=== PATIENT | male | born 2000 | race African-American/Black ===

== ENCOUNTER 2020-05-04 15:05 | Observation (INO) | payer BC, OTHER ==
[2020-05-04] MEDS ORDERED: IPRATROPIUM-ALBUTEROL 3 ML NEB INHALATION STA (15:19)
[2020-05-04] MEDS ORDERED: methylPREDNISolone SOD SUCCI 125 MG/2 ML VIAL IV STA (15:19)
--- NOTE | 2020-05-04 15:19 | ED ---
SOB HPI - General Chief Complaint: Shortness of Breath Stated Complaint: DANTE Time Seen by Provider: 05/04/20 15:10 Source: patient Mode of arrival: ambulatory - History of Present Illness Initial Comments: The patient is a 19-year-old male who presents to the hospital from longterm. He has a history of mild intermittent asthma and reports that he has had increased work of breathing since last night. [facility] has been providing him with breathing treatments. He also received an IM injection of steroids this morning. Reports to minimal and transient improvement in his symptoms. Denies previously being on life support. Denies frequent visits to the emergency room and urgent cares for asthma. Patient's never seen a dental assistant. He denies productive cough or chest pain. No hemoptysis. Denies any back or flank pain. No recent fevers or chills. Denies sick contacts. No recent travel. No lower trauma edema. No history of cardiac disease. There are no alleviating, precipitating or modifying factors - Related Data Home Medications Medication Instructions Recorded Confirmed Albuterol Inhaler [Ventolin Hfa 2 puff INHALATION RT-Q4H PRN 05/04/20 05/04/20 Inhaler] Previous Rx's Medication Instructions Recorded Famotidine [Pepcid] 20 mg PO BID #30 tablet 05/05/20 predniSONE 10 mg PO DAILY #30 tab 05/05/20 Allergies Allergy/AdvReac Type Severity Reaction Status Date / Time No Known Allergies Allergy Verified 05/04/20 19:06 Review of Systems ROS Statement: Those systems with pertinent positive or pertinent negative responses have been documented in the HPI. ROS Other: All systems not noted in ROS Statement are negative. Past Medical History Past Medical History: Asthma History of Any Multi-Drug Resistant Organisms: None Reported Past Surgical History: No Surgical Hx Reported Past Psychological History: No Psychological Hx Reported Smoking Status: Never smoker Past Alcohol Use History: None Reported Past Drug Use History: Marijuana - Past Family History Mother Additional Family Medical History / Comment(s): migraines General Exam General appearance: alert, in distress Head exam: Present: atraumatic, normocephalic, normal inspection Eye exam: Present: normal appearance, PERRL, EOMI. Absent: scleral icterus, conjunctival injection, periorbital swelling ENT exam: Present: normal exam, mucous membranes moist Neck exam: Present: normal inspection. Absent: tenderness, meningismus, lymphadenopathy Respiratory exam: Present: normal lung sounds bilaterally, stridor, accessory muscle use, other (tachypnia. Patient has forced upper airway sounds) Cardiovascular Exam: Present: normal rhythm, tachycardia GI/Abdominal exam: Present: soft, normal bowel sounds. Absent: distended, tenderness, guarding, rebound, rigid Extremities exam: Present: normal inspection, full ROM, normal capillary refill. Absent: tenderness, pedal edema, joint swelling, calf tenderness Neurological exam: Present: alert, oriented X3, CN II-XII intact Psychiatric exam: Present: anxious Skin exam: Present: warm, dry Course Vital Signs 05/04/20 05/04/20 05/04/20 15:08 15:32 15:44 Temperature 97.9 F Pulse Rate 125 H 120 H 118 H Respiratory 28 H Rate Blood Pressure 142/92 O2 Sat by Pulse 100 Oximetry 05/04/20 05/04/20 15:56 17:58 Temperature 98.0 F Pulse Rate 117 H 98 Respiratory 20 Rate Blood Pressure 128/81 O2 Sat by Pulse 98 Oximetry Medical Decision Making - Medical Decision Making Upon return of the patient's placed into room 4. A thorough history and physic al exam is performed. Patient is not diffusely wheezy however does have a prominent sound with expiration as if he is forcing air through his upper airway. No stridor. Patient is tachypneic and tachycardic. Peripheral IV had been established by EMS. 12-lead EKG was performed which demonstrates diffuse T-wave inversions and ST depression. The patient was given a DuoNeb breathing treatment followed by an albuterol treatment. He is also provided with a gram of magnesium and 125 mg of Solu-Medrol IV. Laboratories were conducted. White blood cell count 12.7. Lactic acid 8.5. Chest x-ray demonstrates slight prominence with increased central markings may reflect small airway disease. Michi cavanaugh is reevaluated and breathing is much improved. He was given a liter bolus normal saline for his lactic acidosis. Recommend hospital admission for which the patient agree. Case is discussed with Dr. Quick. Dr. Aguiar will be placed on consult. Patient will receive breathing treatments and steroids on the floor. Patient is then transferred to the floor in stable condition - Lab Data Result diagrams: 05/05/20 03:27 05/05/20 03:27 Lab Results 05/04/20 05/04/20 05/04/20 Range/Units 00:50 15:23 15:23 WBC 12.7 H (3.8-10.6) k/uL RBC 5.95 H (4.30-5.90) m/uL Hgb 16.9 (13.0-17.5) gm/dL Hct 50.9 (39.0-53.0) % MCV 85.5 (80.0-100.0) fL MCH 28.4 (25.0-35.0) pg MCHC 33.2 (31.0-37.0) g/dL RDW 13.5 (11.5-15.5) % Plt Count 291 (150-450) k/uL Neutrophils % 93 % Lymphocytes % 4 % Monocytes % 1 % Eosinophils % 2 % Basophils % 0 % Neutrophils # 11.8 H (1.3-7.7) k/uL Lymphocytes # 0.5 L (1.0-4.8) k/uL Monocytes # 0.1 (0-1.0) k/uL Eosinophils # 0.2 (0-0.7) k/uL Basophils # 0.0 (0-0.2) k/uL PT 11.5 (9.0-12.0) sec INR 1.1 (<1.2) APTT 22.5 (22.0-30.0) sec D-Dimer (<0.60) mg/L FEU Sodium (137-145) mmol/L Potassium (3.5-5.1) mmol/L Chloride (98-107) mmol/L Carbon Dioxide (22-30) mmol/L Anion Gap mmol/L BUN (9-20) mg/dL Creatinine (0.66-1.25) mg/dL Est GFR (CKD-EPI)AfAm (>60 ml/min/1.73 sqM) Est GFR (CKD-EPI)NonAf (>60 ml/min/1.73 sqM) Glucose (74-99) mg/dL Lactic Ac Sepsis Rflx Plasma Lactic Acid Osmar (0.7-2.0) mmol/L Calcium (8.4-10.2) mg/dL Total Bilirubin (0.2-1.3) mg/dL AST (17-59) U/L ALT (4-49) U/L Alkaline Phosphatase (38-126) U/L Troponin I (0.000-0.034) ng/mL Total Protein (6.3-8.2) g/dL Albumin (3.5-5.0) g/dL Urine Color Yellow Urine Appearance Clear (Clear) Urine pH 6.5 (5.0-8.0) Ur Specific Cook 1.018 (1.001-1.035) Urine Protein Negative (Negative) Urine Glucose (UA) Negative (Negative) Urine Ketones Negative (Negative) Urine Blood Negative (Negative) Urine Nitrite Negative (Negative) Urine Bilirubin Negative (Negative) Urine Urobilinogen 4.0 (<2.0) mg/dL Ur Leukocyte Esterase Negative (Negative) 05/04/20 05/04/20 05/04/20 Range/Units 15:23 15:23 15:23 WBC (3.8-10.6) k/uL RBC (4.30-5.90) m/uL Hgb (13.0-17.5) gm/dL Hct (39.0-53.0) % MCV (80.0-100.0) fL MCH (25.0-35.0) pg MCHC (31.0-37.0) g/dL RDW (11.5-15.5) % Plt Count (150-450) k/uL Neutrophils % % Lymphocytes % % Monocytes % % Eosinophils % % Basophils % % Neutrophils # (1.3-7.7) k/uL Lymphocytes # (1.0-4.8) k/uL Monocytes # (0-1.0) k/uL Eosinophils # (0-0.7) k/uL Basophils # (0-0.2) k/uL PT (9.0-12.0) sec INR (<1.2) APTT (22.0-30.0) sec D-Dimer (<0.60) mg/L FEU Sodium 139 (137-145) mmol/L Potassium 3.3 L (3.5-5.1) mmol/L Chloride 106 (98-107) mmol/L Carbon Dioxide 13 L (22-30) mmol/L Anion Gap 20 mmol/L BUN 12 (9-20) mg/dL Creatinine 0.88 (0.66-1.25) mg/dL Est GFR (CKD-EPI)AfAm >90 (>60 ml/min/1.73 sqM) Est GFR (CKD-EPI)NonAf >90 (>60 ml/min/1.73 sqM) Glucose 125 H (74-99) mg/dL Lactic Ac Sepsis Rflx Plasma Lactic Acid Osmar 8.5 H* (0.7-2.0) mmol/L Calcium 10.8 H (8.4-10.2) mg/dL Total Bilirubin 1.7 H (0.2-1.3) mg/dL AST 35 (17-59) U/L ALT 29 (4-49) U/L Alkaline Phosphatase 94 (38-126) U/L Troponin I <0.012 (0.000-0.034) ng/mL Total Protein 8.3 H (6.3-8.2) g/dL Albumin 5.0 (3.5-5.0) g/dL Urine Color Urine Appearance (Clear) Urine pH (5.0-8.0) Ur Specific Cook (1.001-1.035) Urine Protein (Negative) Urine Glucose (UA) (Negative) Urine Ketones (Negative) Urine Blood (Negative) Urine Nitrite (Negative) Urine Bilirubin (Negative) Urine Urobilinogen (<2.0) mg/dL Ur Leukocyte Esterase (Negative) 05/04/20 05/04/20 Range/Units 15:23 15:50 WBC (3.8-10.6) k/uL RBC (4.30-5.90) m/uL Hgb (13.0-17.5) gm/dL Hct (39.0-53.0) % MCV (80.0-100.0) fL MCH (25.0-35.0) pg MCHC (31.0-37.0) g/dL RDW (11.5-15.5) % Plt Count (150-450) k/uL Neutrophils % % Lymphocytes % % Monocytes % % Eosinophils % % Basophils % % Neutrophils # (1.3-7.7) k/uL Lymphocytes # (1.0-4.8) k/uL Monocytes # (0-1.0) k/uL Eosinophils # (0-0.7) k/uL Basophils # (0-0.2) k/uL PT (9.0-12.0) sec INR (<1.2) APTT (22.0-30.0) sec D-Dimer <0.17 (<0.60) mg/L FEU Sodium (137-145) mmol/L Potassium (3.5-5.1) mmol/L Chloride (98-107) mmol/L Carbon Dioxide (22-30) mmol/L Anion Gap mmol/L BUN (9-20) mg/dL Creatinine (0.66-1.25) mg/dL Est GFR (CKD-EPI)AfAm (>60 ml/min/1.73 sqM) Est GFR (CKD-EPI)NonAf (>60 ml/min/1.73 sqM) Glucose (74-99) mg/dL Lactic Ac Sepsis Rflx Y Plasma Lactic Acid Osmar (0.7-2.0) mmol/L Calcium (8.4-10.2) mg/dL Total Bilirubin (0.2-1.3) mg/dL AST (17-59) U/L ALT (4-49) U/L Alkaline Phosphatase (38-126) U/L Troponin I (0.000-0.034) ng/mL Total Protein (6.3-8.2) g/dL Albumin (3.5-5.0) g/dL Urine Color Urine Appearance (Clear) Urine pH (5.0-8.0) Ur Specific Cook (1.001-1.035) Urine Protein (Negative) Urine Glucose (UA) (Negative) Urine Ketones (Negative) Urine Blood (Negative) Urine Nitrite (Negative) Urine Bilirubin (Negative) Urine Urobilinogen (<2.0) mg/dL Ur Leukocyte Esterase (Negative) - EKG Data EKG Comments: EKG demonstrates sinus tachycardia ventricular rate of 118. MI interval 128. QRS 84. QTC 459. Inverted T waves in leads V3 through V6 as well as 2, 3 and aVF. Disposition Clinical Impression: Asthma exacerbation, Abnormal EKG Disposition: ADMITTED IP TO THIS HOSP Condition: Stable Is patient prescribed a controlled substance at d/c from ED?: No Decision to Admit Reason: Admit from EC Decision Date: 05/04/20 Decision Time: 17:00
[2020-05-04] MEDS ORDERED: MAGNESIUM SULFATE-D5W PMX 1 GM in DEXTROSE/WATER 1 100ML.BAG IVPB ONE (15:25)
[2020-05-04] MEDS ORDERED: ALBUTEROL NEBULIZED 2.5 MG/3 ML INHALATION STA (15:25)
[2020-05-04 15:33] LABS: Basophils % (A) 0 %; Eosinophils # (A) 0.2 k/uL (0-0.7); Eosinophils % (A) 2 %; HCT 50.9 % (39.0-53.0); HGB 16.9 gm/dL (13.0-17.5); Lymphocytes # (A) 0.5 k/uL (1.0-4.8); Lymphocytes % (A) 4 %; MCH 28.4 pg (25.0-35.0); MCHC 33.2 g/dL (31.0-37.0); MCV 85.5 fL (80.0-100.0); Mean Platelet Volume 8.9; Monocytes # (A) 0.1 k/uL (0-1.0); Monocytes % (A) 1 %; Neutrophils # (A) 11.8 k/uL (1.3-7.7); Neutrophils % (A) 93 %; Platelet Count 291 k/uL (150-450); RBC 5.95 m/uL (4.30-5.90); RDW 13.5 % (11.5-15.5); WBC 12.7 k/uL (3.8-10.6)
[2020-05-04 15:42] LABS: INR 1.1 (<1.2); Partial Thromboplastin Time 22.5 sec (22.0-30.0); Prothrombin Time 11.5 sec (9.0-12.0)
[2020-05-04 15:50] LABS: AST 35 U/L (17-59); African American GFR (CKD) >90 (>60 ml/min/1.73 sqM); Alkaline Phosphatase 94 U/L (38-126); Anion Gap 20 mmol/L; Blood Urea Nitrogen 12 mg/dL (9-20); Calcium 10.8 mg/dL (8.4-10.2); Carbon Dioxide 13 mmol/L (22-30); Chloride 106 mmol/L (98-107); Glucose 125 mg/dL (74-99); Non-African American GFR(CKD) >90 (>60 ml/min/1.73 sqM); Potassium 3.3 mmol/L (3.5-5.1); Sodium 139 mmol/L (137-145); Total Bilirubin 1.7 mg/dL (0.2-1.3); Total Protein 8.3 g/dL (6.3-8.2)
[2020-05-04] MEDS ORDERED: SODIUM CHLORIDE 0.9% 2,000 ML IV ONE (15:50)
[2020-05-04 15:57] LABS: ALT 29 U/L (4-49)
--- NOTE | 2020-05-04 16:23 | XR ---
EXAMINATION TYPE: XR chest 2V DATE OF EXAM: 05/04/2020 COMPARISON: None. HISTORY: History of asthma with difficulty in breathing. TECHNIQUE: Frontal and lateral views of the chest are obtained. FINDINGS: There is no suspicious peripheral focal air space opacity, pleural effusion, or pneumothor ax seen. Satisfactory inspiration with increased central markings. The cardiothymic silhouette size i s within normal limits. Note is made of left-sided arch, cardiac apex, and stomach bubble. The osse ous structures are intact. IMPRESSION: Slightly prominent volumes with increased central markings may reflect product of small a irway disease possibly from acute asthma exacerbation. No suspicious peripheral focal infiltrate.
[2020-05-04] MEDS ORDERED: POTASSIUM CHLORIDE ER 20 MEQ TAB.ER PO STA (16:52)
[2020-05-04] MEDS ORDERED: NALOXONE 0.4 MG/ML 1 ML VIAL IV PRN (17:00)
[2020-05-04] MEDS ORDERED: ONDANSETRON 4 MG/2 ML VIAL IVP PRN (18:52)
--- NOTE | 2020-05-04 18:59 | P.HPIM ---
History of Present Illness 27-year-old male presently incarcerated came in with compensative shortness of breath patient has moderate to severe persistent asthma at couple episodes a month lately has been more frequent. And mostly happens during this season. Patient is not wheezing on exam but he has lactic acidosis because of which patient is tachypneic at this time. Patient was started on steroids after which patient felt much better. Patient is on inhalational treatments. Patient is being admitted for asthma exacerbation along with lactic acidosis and tachypnea secondary to lactic acidosis although there is no evidence of sepsis at this time patient doesn't have any pneumonia on the chest x-ray denied any flulike symptoms doesn't have any fever or does have mild leukocytosis, chest discs raise significant for reactive airway disease. She doesn't have any photophobia headache patient doesn't have any symptoms consistent with the meningitis. Doesn't have any abdominal pain patient although has 1 day history of diarrhea multiple episodes and patient is presently having nausea vomiting with epigastric abdominal discomfort patient had an EKG which showed T-wave inversions in all leads consistent with left 20+ strain. Patient is complaining of mild pressure-like chest pain which she has been going on for few days. Patient just pain nonpleuritic not reproducible. Review of Systems REVIEW OF SYSTEMS: CONSTITUTIONAL: No fever, no malaise, no fatigue. HEENT: No recent visual problems or hearing problems. Denied any sore throat. CARDIOVASCULAR: No chest pain, orthopnea, PND, no palpitations, no syncope. PULMONARY: No shortness of breath, no cough, no hemoptysis. GASTROINTESTINAL: No diarrhea, no nausea, no vomiting, no abdominal pain. NEUROLOGICAL: No headaches, no weakness, no numbness. HEMATOLOGICAL: Denies any bleeding or petechiae. GENITOURINARY: Denies any burning micturition, frequency, or urgency. MUSCULOSKELETAL/RHEUMATOLOGICAL: Denies any joint pain, swelling, or any muscle pain. ENDOCRINE: Denies any polyuria or polydipsia. The rest of the 14-point review of systems is negative. Past Medical History Past Medical History: Asthma History of Any Multi-Drug Resistant Organisms: None Reported Past Surgical History: No Surgical Hx Reported Past Psychological History: No Psychological Hx Reported Smoking Status: Never smoker Past Alcohol Use History: None Reported Past Drug Use History: Marijuana Medications and Allergies Allergies Allergy/AdvReac Type Severity Reaction Status Date / Time No Known Allergies Allergy Verified 05/04/20 15:11 Physical Exam Vitals: Vital Signs Temp Pulse Resp BP Pulse Ox 05/04/20 17:58 98.0 F 98 20 128/81 98 05/04/20 15:56 117 H 05/04/20 15:44 118 H 05/04/20 15:32 120 H 05/04/20 15:08 97.9 F 125 H 28 H 142/92 100 Intake and Output 05/04/20 05/04/20 05/04/20 06:59 14:59 22:59 Other: Weight 63.503 kg PHYSICAL EXAMINATION: GENERAL: The patient is alert and oriented x3, in mild respiratory distress. Well developed, well nourished. HEENT: Pupils are round and equally reacting to light. EOMI. No scleral icterus. No conjunctival pallor. Normocephalic, atraumatic. No pharyngeal erythema. No thyromegaly. CARDIOVASCULAR: S1 and S2 present. No murmurs, rubs, or gallops. PULMONARY: Chest is clear to auscultation, no wheezing or crackles. Patient is to Neck but not wheezing ABDOMEN: Soft, nontender, nondistended, normoactive bowel sounds. No palpable organomegaly. MUSCULOSKELETAL: No joint swelling or deformity. EXTREMITIES: No cyanosis, clubbing, or pedal edema. NEUROLOGICAL: Gross neurological examination did not reveal any focal deficits. SKIN: No rashes. Results CBC & Chem 7: 05/04/20 15:23 05/04/20 15:23 Labs: Abnormal Lab Results - Last 24 Hours (Table) 05/04/20 05/04/20 05/04/20 Range/Units 15:23 15:23 15:23 WBC 12.7 H (3.8-10.6) k/uL RBC 5.95 H (4.30-5.90) m/uL Neutrophils # 11.8 H (1.3-7.7) k/uL Lymphocytes # 0.5 L (1.0-4.8) k/uL Potassium 3.3 L (3.5-5.1) mmol/L Carbon Dioxide 13 L (22-30) mmol/L Glucose 125 H (74-99) mg/dL Plasma Lactic Acid Osmar 8.5 H* (0.7-2.0) mmol/L Calcium 10.8 H (8.4-10.2) mg/dL Total Bilirubin 1.7 H (0.2-1.3) mg/dL Total Protein 8.3 H (6.3-8.2) g/dL 05/04/20 Range/Units 18:20 WBC (3.8-10.6) k/uL RBC (4.30-5.90) m/uL Neutrophils # (1.3-7.7) k/uL Lymphocytes # (1.0-4.8) k/uL Potassium (3.5-5.1) mmol/L Carbon Dioxide (22-30) mmol/L Glucose (74-99) mg/dL Plasma Lactic Acid Osmar 3.2 H* (0.7-2.0) mmol/L Calcium (8.4-10.2) mg/dL Total Bilirubin (0.2-1.3) mg/dL Total Protein (6.3-8.2) g/dL Assessment and Plan Plan: Acute asthma exacerbation patient appears to have moderate to persistent asthma patient will be continued on systemic steroids inhalational treatments. Patient asthma exacerbation already improved next and heparin lactic acidosis probably secondary to dehydration patient will be started on IV fluids and will be c ontinued will repeat lactic acid tomorrow no evidence of sepsis at this time we'll also obtain UA with urine cultures -Epigastric abdominal discomfort pressure like chest pain secondary to gastroesophageal reflux disease patient will be started on Protonix. And Zofran. -T wave inversions in multiple leads secondary to left and less today and will obtain echo cardiac event will also obtain 2 more troponins because of his chest a pressure-like sensation. Patient doesn't have any family history of premature coronary artery disease. DVT prophylaxis: Early ambulation GI prophylaxis Protonix
[2020-05-04] MEDS: IPRATROPIUM-ALBUTEROL 3 ML NEB INHALATION SCH ×2 (19:54→23:19)
[2020-05-04] MEDS: PANTOPRAZOLE 40 MG/10 ML VIAL IVP SCH (21:38)
[2020-05-04] MEDS: SODIUM CHLORIDE 0.9% 1,000 ML IV SCH (21:38)
[2020-05-05] MEDS ORDERED: methylPREDNISolone SOD SUCCI 40 MG/ML 1 ML VIAL IV SCH
[2020-05-05] MEDS: methylPREDNISolone SOD SUCCI 40 MG/ML 1 ML VIAL IV SCH ×2 (00:43→08:43)
[2020-05-05 01:11] LABS: Appearance,Urine Clear (Clear); Bilirubin,Urine Negative (Negative); Blood,Urine Negative (Negative); Color,Urine Yellow; Glucose,Urine (UA) Negative (Negative); Ketones,Urine Negative (Negative); Leukocyte Esterase,Urine Negative (Negative); Nitrite,Urine Negative (Negative); PH, Urine 6.5 (5.0-8.0); Protein,Urine Negative (Negative); Specific Gravity,Urine 1.018 (1.001-1.035)
[2020-05-05] MEDS: SODIUM CHLORIDE 0.9% 1,000 ML IV SCH ×2 (03:44→11:47)
[2020-05-05] MEDS: IPRATROPIUM-ALBUTEROL 3 ML NEB INHALATION SCH ×3 (03:49→10:55)
[2020-05-05 03:53] LABS: African American GFR (CKD) >90 (>60 ml/min/1.73 sqM); Anion Gap 8 mmol/L; Blood Urea Nitrogen 10 mg/dL (9-20); Calcium 9.6 mg/dL (8.4-10.2); Carbon Dioxide 19 mmol/L (22-30); Chloride 109 mmol/L (98-107); Glucose 128 mg/dL (74-99); Non-African American GFR(CKD) >90 (>60 ml/min/1.73 sqM); Potassium 4.4 mmol/L (3.5-5.1); Sodium 136 mmol/L (137-145)
[2020-05-05 04:23] LABS: Basophils % (A) 0 %; Eosinophils % (A) 0 %; HCT 44.2 % (39.0-53.0); HGB 14.8 gm/dL (13.0-17.5); Lymphocytes # (A) 0.9 k/uL (1.0-4.8); Lymphocytes % (A) 7 %; MCH 29.5 pg (25.0-35.0); MCHC 33.6 g/dL (31.0-37.0); MCV 87.7 fL (80.0-100.0); Monocytes # (A) 0.2 k/uL (0-1.0); Monocytes % (A) 2 %; Neutrophils # (A) 11.5 k/uL (1.3-7.7); Neutrophils % (A) 91 %; Platelet Count 248 k/uL (150-450); RBC 5.04 m/uL (4.30-5.90); RDW 13.4 % (11.5-15.5); WBC 12.6 k/uL (3.8-10.6)
[2020-05-05] MEDS: PANTOPRAZOLE 40 MG/10 ML VIAL IVP SCH (08:43)
[2020-05-05 09:19] VITALS: BP 132/68; RESP 18; TEMP 97.8
--- NOTE | 2020-05-05 10:38 | ECHOF ---
Referral Reason:chest pain MEASUREMENTS -------- HEIGHT: 182.9 cm WEIGHT: 63.0 kg BP: 135/80 RVIDd: 2.9 cm (< 3.3) IVSd: 0.8 cm (0.6 - 1.1) LVIDd: 3.7 cm (3.9 - 5.3) LVPWd: 1.1 cm (0.6 - 1.1) IVSs: 1.7 cm LVIDs: 2.1 cm LVPWs: 1.5 cm LA Diam: 2.6 cm (2.7 - 3.8) Ao Diam: 2.8 cm (2.0 - 3.7) AV Cusp: 2.1 cm (1.5 - 2.6) MV EXCURSION: 19.783 mm (> 18.000) MV EF SLOPE: 151 mm/s (70 - 150) EPSS: 0.3 cm MV E Kwan: 1.12 m/s MV DecT: 170 ms MV A Kwan: 0.72 m/s MV E/A Ratio: 1.56 RAP: 5.00 mmHg RVSP: 24.03 mmHg FINDINGS -------- Sinus rhythm. This was a technically good study. The left ventricular size is normal. Left ventricular wall thickness is normal. Overall left vent ricular systolic function is normal with, an EF between 60 - 65 %. The right ventricle is normal in size. The left atrial size is normal. The right atrium is normal in size. Interatrial and interventricular septum intact. The aortic valve is trileaflet and appears structurally normal. The mitral valve is normal. Mild tricuspid regurgitation present. Right ventricular systolic pressure is normal at < 35 mmHg. Trace/mild (physiologic) pulmonic regurgitation. The aortic root size is normal. Normal inferior vena cava with normal inspiratory collapse consistent with estimated right atrial pre ssure of 5 mmHg. There is no pericardial effusion. CONCLUSIONS -------- 1. Sinus rhythm. 2. This was a technically good study. 3. The left ventricular size is normal. 4. Left ventricular wall thickness is normal. 5. Overall left ventricular systolic function is normal with, an EF between 60 - 65 %. 6. The right ventricle is normal in size. 7. The left atrial size is normal. 8. The right atrium is normal in size. 9. Interatrial and interventricular septum intact. 10. The aortic valve is trileaflet and appears structurally normal. 11. The mitral valve is normal. 12. Mild tricuspid regurgitation present. 13. Right ventricular systolic pressure is normal at < 35 mmHg. 14. Trace/mild (physiologic) pulmonic regurgitation. 15. The aortic root size is normal. 16. Normal inferior vena cava with normal inspiratory collapse consistent with estimated right atrial pressure of 5 mmHg. 17. There is no pericardial effusion. REAL ESTATE ANALYST: Evelyn Díaz RDCS
--- NOTE | 2020-05-05 10:42 | P.CNPUL ---
History of Present Illness Consult date: 05/05/20 Reason for consult: asthma History of present illness: [age]-year-old -[place] male patient, incarcerated currently, coming in because of some increased shortness of breath. He states that he has bronchial asthma, and he is been asthmatic since childhood. The patient has been using only Ventolin rescue inhaler on an as-needed basis. He was briefly living in [place] and he is currently living in [facility]. The patient does not use any form of chronic maintenance respiratory medications such as and had corticosteroids. The patient currently is admitted because of some increased shortness of breath. He was having increased dyspnea, chest tightness and wheeze. He also states that he was not eating a whole lot are present. He was quite dehydrated and he had some lactic acidosis time of admission which easily covered with fluid resuscitation. The Covid 19 evaluation came back negative. No chest pain. No hemoptysis. No pleurisy. No recurrent pneumonias. No previous hospital physician for asthma exacerbation. No previous respiratory failures. No other significant events otherwise for now. The patient's is a lready recovered and is back to his baseline for now. He does have a home nebulizer. No oropharyngeal thrush. No heartburn. He has environmental ALLERGIES. He has ALLERGIES to was prepped and there including cats and dogs. He lives in an apartment in [facility]. Does not have a regular primary care physician. Review of Systems REVIEW OF SYSTEMS: CONSTITUTIONAL: No fever, no malaise, no fatigue. HEENT: No recent visual problems or hearing problems. Denied any sore throat. CARDIOVASCULAR: No chest pain, orthopnea, PND, no palpitations, no syncope. PULMONARY: No shortness of breath, no cough, no hemoptysis. The patient has increased shortness of breath and at time of admission which is improved. No significant wheezing for now. GASTROINTESTINAL: No diarrhea, no nausea, no vomiting, no abdominal pain. NEUROLOGICAL: No headaches, no weakness, no numbness. HEMATOLOGICAL: Denies any bleeding or petechiae. GENITOURINARY: Denies any burning micturition, frequency, or urgency. MUSCULOSKELETAL/RHEUMATOLOGICAL: Denies any joint pain, swelling, or any muscle pain. ENDOCRINE: Denies any polyuria or polydipsia. The rest of the 14-point review of systems is negative. Past Medical History Past Medical History: Asthma Additional Past Medical History / Comment(s): migraines History of Any Multi-Drug Resistant Organisms: None Reported Past Surgical History: No Surgical Hx Reported Past Anesthesia/Blood Transfusion Reactions: No Reported Reaction Past Psychological History: No Psychological Hx Reported Smoking Status: Never smoker Past Alcohol Use History: None Reported Past Drug Use History: Marijuana - Past Family History Mother Additional Family Medical History / Comment(s): migraines Medications and Allergies Home Medications Medication Instructions Recorded Confirmed Type Albuterol Inhaler [Ventolin Hfa 2 puff INHALATION RT-Q4H PRN 05/04/20 05/04/20 History Inhaler] Allergies Allergy/AdvReac Type Severity Reaction Status Date / Time No Known Allergies Allergy Verified 05/04/20 19:06 Physical Exam Vitals: Vital Signs Temp Pulse Pulse Resp BP BP Pulse Ox 05/05/20 08:35 97.8 F 86 18 132/68 99 05/05/20 07:57 80 05/05/20 07:47 80 05/05/20 04:12 98.4 F 89 17 135/80 100 05/05/20 04:02 80 05/05/20 03:50 76 05/04/20 23:32 76 05/04/20 23:19 80 05/04/20 20:04 80 05/04/20 20:00 98.9 F 81 17 114/70 99 05/04/20 19:55 76 05/04/20 17:58 98.0 F 98 20 128/81 98 05/04/20 15:56 117 H 05/04/20 15:44 118 H 05/04/20 15:32 120 H 05/04/20 15:08 97.9 F 125 H 28 H 142/92 100 Intake and Output 05/04/20 05/05/20 05/05/20 22:59 06:59 14:59 Intake Total 750 600 Balance 750 600 Intake: Intake, IV Titration 750 Amount Sodium Chloride 0.9% 1, 750 000 ml @ 125 mls/hr IV . Q8H DEVORA Rx#:[id number] Oral 600 Other: # Voids 1 1 Weight 63.503 kg 63.5 kg The patient appeared well nourished and normally developed. Vital signs as documented. Head exam is unremarkable. No scleral icterus or corneal arcus noted. Neck is without jugular venous distension, thyromegaly, or carotid bruits. Carotid upstrokes are brisk bilaterally. Lungs are clear to auscultation and percussion. Cardiac exam reveals the PMI to be normally sized and situated. Rhythm is regular. First and second heart sounds normal. No murmurs, rubs or gallops. Abdominal exam reveals normal bowel sounds, no masses, no organomegaly and no aortic enlargement. Extremities are nonedematous and both femoral and pedal pulses are normal.Examination of the skin revealed no evidence of significant rashes, suspicious appearing nevi or other concerning lesions. Neurologic examination is within normal limits Results - Laboratory Findings CBC and BMP: 05/05/20 03:27 05/05/20 03:27 PT/INR, D-dimer PT 11.5 sec (9.0-12.0) 05/04/20 15:23 INR 1.1 (<1.2) 05/04/20 15:23 D-Dimer <0.17 mg/L FEU (<0.60) 05/04/20 15:23 Abnormal lab findings: Abnormal Labs 05/04/20 05/04/20 05/04/20 15:23 15:23 15:23 WBC 12.7 H RBC 5.95 H Neutrophils # 11.8 H Lymphocytes # 0.5 L Sodium Potassium 3.3 L Chloride Carbon Dioxide 13 L Glucose 125 H Plasma Lactic Acid Osmar 8.5 H* Calcium 10.8 H Total Bilirubin 1.7 H Total Protein 8.3 H 05/04/20 05/05/20 05/05/20 18:20 03:27 03:27 WBC 12.6 H RBC Neutrophils # 11.5 H Lymphocytes # 0.9 L Sodium 136 L Potassium Chloride 109 H Carbon Dioxide 19 L Glucose 128 H Plasma Lactic Acid Osmar 3.2 H* Calcium Total Bilirubin Total Protein - Diagnostic Findings Chest x-ray: image reviewed Assessment and Plan Plan: 1 mild intermittent bronchial asthma with exacerbation, improved and the patient is back to his baseline. Chest x-rays clear. Covid 19 evaluation was negative. No signs of any infection or pneumonia. 2 mild lactic acidosis secondary to dehydration, recovered, and the metabolic acidosis improving and the epigastric level is down to 1.5. 3 incarceration Plan The patient is a nonsmoker. Check a urine drug screen. Can be switched to prednisone burst taper. Can be chest or back to present to complete his sentences. 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 I'm going to sign off the case.
[2020-05-05 11:35] VITALS: PULSE 76
--- NOTE | 2020-05-05 12:50 | P.DS ---
Providers Date of admission: 05/04/20 17:00 Attending physician: Yanni Haile Consults: 05/04/20 17:01 Consult Physician Urgent Consulting Provider: Alvin Momin Consult Reason/Comments: acute asthma exacerbation Do you want consulting provider notified?: Yes Primary care physician: Stated None Hospital Course: Patient is admitted for asthma exacerbation which improved patient is saturating well on room air not to Vitals are stable is being discharged on steroid taper, he'll continue with his albuterol. Patient also had lactic acidosis leading to tachypnea etiology of lactic acidosis is believed to be secondary to dehydration no evidence of infection lactic acidosis resolved with IV fluids. Patient also had some EKG changes consistent with left ventricle strain because of which I ordered an echocardiogram which did show EF of around 60-65% but there is no LV hypertrophy patient is not hypertensive, no other structural abnormality was evident on the echocardiogram there is no wall motion abnormality and the echocardiogram. PHYSICAL EXAMINATION: GENERAL: The patient is alert and oriented x3, not in any acute distress. Well developed, well nourished. HEENT: Pupils are round and equally reacting to light. EOMI. No scleral icterus. No conjunctival pallor. Normocephalic, atraumatic. No pharyngeal erythema. No thyromegaly. CARDIOVASCULAR: S1 and S2 present. No murmurs, rubs, or gallops. PULMONARY: Chest is clear to auscultation, no wheezing or crackles. ABDOMEN: Soft, nontender, nondistended, normoactive bowel sounds. No palpable organomegaly. MUSCULOSKELETAL: No joint swelling or deformity. EXTREMITIES: No cyanosis, clubbing, or pedal edema. NEUROLOGICAL: Gross neurological examination did not reveal any focal deficits. SKIN: No rashes. For rest of medical problems and has physician course please refer to HPI for further details Patient Condition at Discharge: Stable Plan - Discharge Summary Discharge Rx Participant: No New Discharge Prescriptions: New Famotidine [Pepcid] 20 mg PO BID #30 tablet predniSONE 10 mg PO DAILY #30 tab No Action Albuterol Inhaler [Ventolin Hfa Inhaler] 2 puff INHALATION RT-Q4H PRN PRN Reason: Shortness Of Breath Discharge Medication List Albuterol Inhaler [Ventolin Hfa Inhaler] 2 puff INHALATION RT-Q4H PRN 05/04/20 [History] Famotidine [Pepcid] 20 mg PO BID #30 tablet 05/05/20 [Rx] predniSONE 10 mg PO DAILY #30 tab 05/05/20 [Rx] Follow up Appointment(s)/Referral(s): None,Stated [Primary Care Provider] - 1-2 days
[2020-05-05] MEDS ORDERED: PANTOPRAZOLE 40 MG TABLET PO SCH (17:30)
== END 2020-05-05 13:02 | disposition other institution (70) ==
LOC: EC 15:05 → 1SOBS 17:00
PROVIDERS: ADMIT Hospitalist; ATTEND Hospitalist
DX: J45.51 Severe persistent asthma with (acute) exacerbation (principal); R94.31 Abnormal electrocardiogram [ECG] [EKG]; E86.0 Dehydration; E87.2 Acidosis; G43.909 Migraine, unspecified, not intractable, without status migrainosus; D72.829 Elevated white blood cell count, unspecified; K21.9 Gastro-esophageal reflux disease without esophagitis; Z79.899 Other long term (current) drug therapy; Z82.0 Family history of epilepsy and other diseases of the nervous system; Z20.828 Contact with and (suspected) exposure to other viral communicable diseases
CPT/HCPCS: 96360; 96375 ×2; 96376; 96365; 96366; 99285; 36415; 94640 ×4; 93005 ×2; 93306; 85379; 80053; 80048; 83605 ×2; 84484 ×2; 85025 ×2; 85610; 85730; 81003; 71046; G0378 ×2; U0003; J2920; J2930; J3475; C9113 ×2